=== PATIENT | male | born 1945 | race Caucasian/White ===

== ENCOUNTER → 2016-07-19 | Outpatient (CLI) | payer MEDICARE, OTHER ==
[~2016-07-19] MED LIST: ASPIRIN 325MG325 MG PO; DOSS PO; FLOMAX 0.4 MG0.4 MG PO; HYDROCHLOROTH12.5 MG PO; LISINOPRIL20 MG PO; PERCOCET 7.5-31 EACH PO; ZOFRAN4 MG PO
== END ==
LOC: KOH-I 09:08
DX: M25.551 Pain in right hip (principal); M25.552 Pain in left hip
CPT/HCPCS: 72170